=== PATIENT | male | born 1990 ===

== ENCOUNTER 2017-09-01 11:12 | Emergency (ER) | payer SELFPAY ==
[~2017-09-01] VITALS: Ht 177.8 cm; Wt 68.0 kg
[2017-09-01 11:42] LABS: BILIRUBIN 1+ (NEGATIVE); BLOOD NEGATIVE (NEGATIVE); CLARITY SL CLOUDY (CLEAR); COLOR YELLOW (YELLOW); GLUCOSE NEGATIVE (NEGATIVE); KETONE NEGATIVE (NEGATIVE); LEUKO ESTERASE NEGATIVE (NEGATIVE); NITRITE NEGATIVE (NEGATIVE); PH 5.5 (5.0-9.0); SPECIFIC GRAVITY >= 1.030 (1.005-1.030); UROBILINOGEN 0.2 E.U./dl (0.2-1.0)
[2017-09-01 11:52] LABS: RBC 0-2 rbc/hpf (0-2)
[2017-09-01 11:53] LABS: MUCOUS 3+
[2017-09-03 21:02] LABS: GONOCOCCUS BY NAA Negative (Negative)
== END 2017-09-01 12:17 | disposition home or self-care (01) ==
LOC: ED 11:12
PROVIDERS: Registered Nurse
DX: Z11.3 Encounter for screening for infections with a predominantly sexual mode of transmission (principal); R30.0 Dysuria